=== PATIENT | male | born 1980 | race Caucasian/White ===

== ENCOUNTER 2019-10-27 20:13 | Emergency (ER) | payer BC ==
[2019-10-27] MEDS ORDERED: CEPHALEXIN500 M1 PO (21:26)
[2019-10-27 21:38] VITALS: BP 119/75
== END 2019-10-27 21:38 | disposition home or self-care (01) ==
LOC: ED 20:13
DX: S81.812A Laceration without foreign body, left lower leg, initial encounter (principal); W26.8XXA Contact with other sharp object(s), not elsewhere classified, initial encounter; Y92.009 Unspecified place in unspecified non-institutional (private) residence as the place of occurrence of the external cause